=== PATIENT | female | born 1965 | race Hispanic/Latino ===

== ENCOUNTER → 2024-03-13 | Outpatient (CLI) | payer MEDICAID ==
[~2024-03-13] MED LIST: ALPR1TAB7 PO; IOHEXOL 350 MG/ML 100ML INFUS..BTL IV ONE; LEVO112T7 PO; METOPROLOL TARTRATE 1 MG/ML 5ML VIAL IV ONE; MULT-1203 PO; OMEG300C3 PO; OMEP20TA20 PO; SIMV-43 PO
== END | disposition home or self-care (01) ==
LOC: RAH 10:44
PROVIDERS: ATTEND Student in an Organized Health Care Education/Training Program
DX: R94.31 Abnormal electrocardiogram [ECG] [EKG] (principal); M47.815 Spondylosis without myelopathy or radiculopathy, thoracolumbar region
CPT/HCPCS: 75574; J3490; Q9967